=== PATIENT | male | born 1995 | race Hispanic/Latino ===

== ENCOUNTER 2023-11-16 12:43 | Emergency (ER) | payer SELFPAY ==
[2023-11-16 12:57] VITALS: BP 112/67; PULSE 77; RESP 16; TEMP 37.3; O2SAT 97
--- NOTE | 2023-11-16 13:40 | ED.GENADULT ---
HPI - General Adult General Chief complaint: Upper Respiratory Infection Stated complaint: URI Time Seen by Provider: 11/16/23 13:15 History of Present Illness HPI narrative: 28-year-old male presenting to the emergency department for evaluation of sore throat that started last night. Patient also states he has had some intermittent fever as well. Patient denies any sick contacts. Related Data Allergies Allergy/AdvReac Type Severity Reaction Status Date / Time No Known Allergies Allergy Verified 11/16/23 13:12 Review of Systems Review of Systems: All systems reviewed & are unremarkable except as noted in HPI and below Exam Narrative: APPEARANCE: Well appearing, no pain, no distress, well-nourished. HEAD: normocephalic, atraumatic. EYES: PERRLA/EOMI, conjunctivae clear. NOSE: Normal no drainage EARS:TMS clear with good light reflex. THROAT: Erythema of the posterior pharynx with no swelling, tonsillar exudate. NECK: Supple. No adenopathy, no masses. RESPIRATORY: Airway patent, respirations nonlabored. Clear to auscultation bilaterally, no rales, rhonchi, wheezing. CARDIOVASCULAR: Regular rate and rhythm without murmurs rubs or gallops. ABDOMINAL: Soft, nontender, nondistended, normal bowel sounds MUSCULOSKELETAL: Moves all extremities. Strength/ROM intact, No edema, No calf tenderness. NEURO: Alert. Cranial nerves II through XII intact. Grossly intact SKIN: Warm, dry. Normal Color Course Course Emergency Course: 28-year-old male presenting ED for evaluation of sore throat, patient was negative for strep COVID RSV and influenza. Patient does have significant tonsillar exudate and patient is being treated clinically for strep throat. Patient was started on antibiotic and was updated on symptomatic control with home. Vital Signs Vital signs: Vital Signs Temperature 99.2 F 11/16/23 12:57 Pulse Rate 77 11/16/23 12:57 Respiratory Rate 16 11/16/23 12:57 Blood Pressure 112/67 11/16/23 12:57 Pulse Oximetry 97 11/16/23 12:57 Oxygen Delivery Room Air 11/16/23 12:57 Temperature 99.2 F 11/16/23 12:57 Pulse Rate 77 11/16/23 12:57 Respiratory Rate 16 11/16/23 12:57 Blood Pressure 112/67 01/30/24 12:57 Pulse Oximetry 97 11/16/23 12:57 Oxygen Delivery Room Air 11/16/23 12:57 Medical Decision Making Vital Signs Vital Signs: Vital Signs Temperature 99.2 F 11/16/23 12:57 Pulse Rate 77 11/16/23 12:57 Respiratory Rate 16 11/16/23 12:57 Blood Pressure 112/67 11/16/23 12:57 Pulse Oximetry 97 11/16/23 12:57 Oxygen Delivery Room Air 11/16/23 12:57 Temperature 99.2 F 11/16/23 12:57 Pulse Rate 77 11/16/23 12:57 Respiratory Rate 16 11/16/23 12:57 Blood Pressure 112/67 11/16/23 12:57 Pulse Oximetry 97 11/16/23 12:57 Oxygen Delivery Room Air 11/16/23 12:57 Lab Data Lab results reviewed: Yes I reviewed the patient's lab results. Labs: Lab Results 11/16/23 11/16/23 Range/Units 13:31 13:32 Influenza A (RT-PCR) Negative (Negative) Influenza B (RT-PCR) Negative (Negative) RSV (RT-PCR) Negative (Negative) SARS-CoV-2 RNA (RT-PCR) Negative (Negative) Group A Strep (PCR) Not detected (Negative) Discharge Plan Discharge Clinical Impression: Pharyngitis Patient Disposition: Home, Self-Care Condition: Stable Instructions: Antibiotic Form Additional Instructions: Antibiotic as directed until completed. Tylenol and ibuprofen for pain control. Have close follow-up with your primary care physician. If you have any worsening symptoms then please call or return to the emergency department. Antibi?jaky seg?n las indicaciones hasta completarlo. Tylenol e ibuprofeno para controlar el dolor. Tenga un seguimiento estrecho con pardo m?dico de atenci?n primaria. Si tiene alg?n s?ntoma que empeora, llame o regrese al departamento de emergencias. Patient Language: [place]an Prescriptions: New amox
[2023-11-16 14:07] LABS: Strep Group A RT-PCR NOT DETECTED (Negative)
[2023-11-16 14:18] LABS: Influenza A QL RT-PCR Negative (Negative); Influenza B QL RT-PCR Negative (Negative); RSV RNA, RT-PCR Negative (Negative); SARS-CoV-2 RNA PCR Negative (Negative)
[2023-11-16] MEDS: AMOXICILLIN/CLAVULANATE K 875-125 MG TAB 1 TABLET PO (14:39)
== END 2023-11-16 14:40 | disposition home or self-care (01) ==
PROVIDERS: Emergency Provider Emergency Medicine
DX: J02.9 Acute pharyngitis, unspecified (principal); Z20.822 Contact with and (suspected) exposure to COVID-19
CPT/HCPCS: 87637; 87651; 99283; A9270

== ENCOUNTER 2024-02-17 10:52 | Emergency (ER) | payer SELFPAY ==
--- NOTE | ~2024-02-17 | US_ITS ---
US scrotum doppler INDICATION: Bilateral testicular pain TECHNIQUE: Testicular sonogram utilizing grayscale and color Doppler FINDINGS: The testes are normal in size and appearance. No focal lesions are seen. The right testes measures 4.4 x 2 x 2.3 cm centimeters, and the left testis measures 4.4 x 2.3 x 2.7 cm cm. There is n ormal vascular flow to both testes. The right and left epididymides appear normal. There are small bilateral hydroceles. No significant varicocele. IMPRESSION: 1. Small bilateral hydroceles. Reviewed, dictated and finalized at location B.
[2024-02-17 10:57] VITALS: BP 129/63; PULSE 87; RESP 18; TEMP 36.4; O2SAT 100
--- NOTE | 2024-02-17 11:41 | ED.MALEGU ---
HPI - Male Genitourinary General Chief complaint: Urogenital-Male Stated complaint: infection in urinary tract Time Seen by Provider: 02/17/24 11:06 Source: patient and site interpreter Mode of arrival: ambulatory Limitations: no limitations History of Present Illness HPI Narrative: Dilip is a 28-year-old male patient presenting to the emergency room today with complaints lower abdominal pain, bladder pain, and bilateral testicle pain is been going on for 2 weeks. Reports over the last 2-3 days the pain is been more constant. He is having burning with urination. Denies any concern for any sexually transmitted infections. States that there is no discharge coming from the penis. Reports that the left testicle is more tender than the right testicle and feels as though they may be swollen. Denies any nausea, vomiting, or diarrhea. Denies any fever, chills, or back pain. Related Data Allergies Allergy/AdvReac Type Severity Reaction Status Date / Time No Known Allergies Allergy Verified 11/16/23 13:12 Review of Systems Review of Systems: Pertinent positives per HPI. Patient denies any fever, chills, rash, headache, visual changes, dizziness, cough, runny nose, sore throat, shortness of breath, chest pain, palpitations, nausea, vomiting, diarrhea, constipation. PMFSH Comments At the time of my signature, I reviewed and agree with the nursing past medical, surgical, social, and family history. There is no relevant family history pertinent to the patient complaint. Exam Narrative: General: Well-developed, well nourished, in no apparent distress. Head: Normocephalic, atraumatic. Cardio: Regular rate and rhythm, s1 and s2 normal, no murmur appreciated. Resp: Clear to auscultation bilaterally, no rhonchi, rales, wheezing or rubs. Abdomen: Soft, pliable, bowel sounds present in all quadrants, non-tender to palpation, no organomegly, no CVAT tenderness. : Uncircumcised male without corneal adhesions, no lesions or masses noted on the penile shaft or scrotum, tenderness to palpation over the left testicle, no tenderness to palpation over the right testicle, no testicular masses palpable. Course Course Emergency Course: Portions of this record may have been created with voice recognition software. Vital Signs Vital signs: Vital Signs Temperature 36.4 C 02/17/24 10:57 Pulse Rate 87 02/17/24 10:57 Respiratory Rate 18 02/17/24 10:57 Blood Pressure 129/63 02/17/24 10:57 Pulse Oximetry 100 02/17/24 10:57 Oxygen Delivery Room Air 02/17/24 10:57 Temperature 36.4 C 02/17/24 10:57 Pulse Rate 87 02/17/24 10:57 Respiratory Rate 18 02/17/24 10:57 Blood Pressure 129/63 02/17/24 10:57 Pulse Oximetry 100 02/17/24 10:57 Oxygen Delivery Room Air 02/17/24 10:57 Vital signs reviewed MDM - Male Genitourinary MDM Narrative Medical decision making narrative: At the time of visit patient is resting comfortably on the exam table. Patient appears to be nontoxic. Labs: CBC is unremarkable, chemistry levels unremarkable, urinalysis is unremarkable, chlamydia, gonorrhea, and Trichomonas is pending Diagnostics: Scrotal ultrasound shows bilateral small hydroceles Plan: Supportive measures were discussed with the patient and they voiced understanding discharge instructions and agrees to treatment plan. Return precautions reviewed Differential Diagnosis Differential diagnosis: Likely urinary tract infection, urethritis, epididymitis, prostatitis, inguinal hernia and other (STI) Discharge Plan Discharge Clinical Impression: Bilateral hydrocele Patient Disposition: Home, Self-Care Condition: Stable Instructions: Antibiotic Form, Dysuria (ED), Testicle Pain (ED) Additional Instructions: Las pruebas de ITS dieron negativas hoy en urgencias. El an?lisis de orina es negativo para cualquier signo de infecci?n o flavia. La ecograf?a de pardo escroto muestra algunos bushra?os hidrocele
[2024-02-17 13:42] LABS: Appearance Urine Clear (Clear); Basophils Percent Auto 0.4 % (0.2-1.2); Bilirubin Urine Negative (Negative); Blood Urine Negative (Negative); Color Urine Yellow (Yellow); Eosinophils Percent Auto 0.2 % (0-4.4); Glucose Urine UA Negative (Negative); Hematocrit 47.9 % (42.0-52.0); Immature Granulocyte Absolute 0.01 K/mm3 (0.00-0.031); Immature Granulocyte Percent A 0.2 % (0-0.5); Ketones Urine Negative (Negative); Leukocyte Esterase Ur Negative LEU/UL (Negative); Lymphocytes Percent Auto 23.2 % (18.3-44.2); Mean Corpuscular HGB Conc 33.4 g/dl (32-36); Mean Corpuscular Hemoglobin 29.8 pg (26-34); Mean Corpuscular Volume 89.2 fl (80-100); Mean Platelet Volume 9.5 fl (7.4-10.4); Monocytes Absolute Auto 0.5 K/mm3 (0.1-0.6); Monocytes Percent Auto 8.4 % (2.6-8.5); Neutrophils Absolute Auto 3.8 K/mm3 (1.3-6.7); Neutrophils Percent Auto 67.6 % (45.5-73.1); Nitrate Urine Negative (Negative); Platelet Count Result 201 k/mm3 (150-375); Protein Urine Negative (Negative); Red Blood Count 5.37 M/mm3 (4.6-6.20); Red Cell Distribution Width 13.3 % (11.5-14.5); Specific Grav Ur 1.016 (1.001-1.035); Urobilinogen Urine 0.2 mg/dL (<2.0); White Blood Count 5.6 K/mm3 (4.5-10.0); pH Urine 6.5 (5.0-9.0)
[2024-02-17 13:44] LABS: Add Urine Microscopic? NO
[2024-02-17 13:52] LABS: Alanine Aminotransferase 21 U/L (6-50); Albumin Level 4.7 g/dL (3.5-5.1); Alkaline Phosphatase 67 U/L (38-126); Anion Gap 6 mmol/L (4-12); Aspartate Amino Transferase 21 U/L (17-59); Bilirubin,Total 0.6 mg/dL (0.2-1.3); Blood Urea Nitrogen 11 mg/dL (9-20); Calcium 9.5 mg/dL (8.4-10.2); Carbon Dioxide 29 mmol/L (22-30); Chloride 105 mmol/L (98-107); Estimated CRCL calculation 120 ml/min; Estimated Glomerular Filt Rate > 60; Glucose 101 mg/dL (65-110); Potassium 4.2 mmol/L (3.4-5.0); Sodium 140 mmol/L (137-145)
[2024-02-17 14:46] LABS: Trichomonas Vag PCR NOT DETECTED (NOT DETECTE)
[2024-02-17 15:11] LABS: Chlamydia trachomatis NOT DETECTED (NOT DETECTE); Neisseria gonorrhoeae PCR NOT DETECTED (NOT DETECTE)
[2024-02-17 16:16] VITALS: BP 116/68; PULSE 74; RESP 16; TEMP 36.7; O2SAT 100
== END 2024-02-17 16:16 | disposition home or self-care (01) ==
PROVIDERS: Emergency Provider Nurse Practitioner Family
DX: N43.3 Hydrocele, unspecified (principal)
CPT/HCPCS: 36415; 76870; 80053; 81003; 85025; 87491; 87591; 87661; 93976; 99284